=== PATIENT | male | born 1975 | race Caucasian/White ===

== ENCOUNTER → 2024-08-27 10:46 | Outpatient (REF) | payer OTHER, SELFPAY | LOC: RAD 10:46 | PROVIDERS: ATTENDING PHYSICIAN Family Medicine | DX: N50.811 Right testicular pain (principal) | CPT/HCPCS: 76870; 93976 ==

== ENCOUNTER 2024-08-27 13:58 | Emergency (ER) | payer OTHER, SELFPAY ==
[2024-08-27 13:59] VITALS: BP 124/84
[2024-08-27 14:57] LABS: Urine Albumin Negative (Neg - Trace); Urine Bilirubin Negative (Negative); Urine Character Clear (Clear); Urine Color Yellow; Urine Glucose Negative (Negative); Urine Ketone Negative (Negative); Urine Leukocyte Negative (Negative); Urine Nitrite Negative (Negative); Urine Occult Blood 1+ (Negative); Urine Urobilinogen Negative (Neg - 1+); Urine pH 6.5 (5.0-9.0)
[2024-08-27 15:07] LABS: Urine Red Blood Cell 0-2 /HPF (0-2); Urine Squamous Cell 0-2 /LPF (Few); Urine White Cell 0-2 /HPF (0-5)
--- NOTE | 2024-08-27 15:08 | ED.GENMED ---
History of Present Illness
General
Chief Complaint: Male Genito-Urinary Symptoms
Time Seen by Provider: 08/27/24 14:21
History of Present Illness
History of Present Illness:
49-year-old male presents the emergency department for patient of right-sided testicular pain for the past 1 to 2 days. Saw his primary care physician this morning was started on Bactrim, was sent for an outpatient ultrasound and due to the reading
of possible intermittent torsion was sent to the ED. He reports a constant mild to moderate pain with no waxing and waning quality, denies dysuria or hematuria. Denies concern for STI. No trauma to the testicle.
Past History
Past History
ED Past Medical History: None
ED Past Surgical History: Appendectomy
Social History
Tobacco: Non-smoker
Alcohol: Occasional
Drug: None
Living: with family
Employment: Employed
Family History
Family History: Other (non contributary)
Review of Systems
Review of Systems
Allergies reviewed?: Yes
All Other Systems: ROS reviewed and negative except as documented in HPI and ROS
Phy Exam
Physical Exam
Physical Exam:
GEN: Well appearing, NAD, WDWN
HEENT: Oral mucosa moist, no scleral icterus
Cardiac: Regular rate
Lung: No respiratory distress, no tachypnea
: Moderate swelling and erythema to the right hemiscrotum with focal epididymal and testicular tenderness, cremasterics reflex not appreciated bilaterally, no inguinal adenopathy
MSK: No gross deformity or injuries
Skin: Good color, no pallor or jaundice, no rashes
Neuro: AO x3, moves all extremities freely
Psych: Calm, cooperative
Course
Orders/Labs/Results
Orders:
Orders
08/27/24 14:50
Urinalysis Reflex To Culture Urgent
Date Specimen was Collected: 08/27/24
Time Specimen was Collected: 14:46
Urine Microscopic Reflex Cult Urgent
Abnormal Lab Results
08/27/24
14:50
Ur Occult Blood Reflex 1+ A
(Negative)
Vital Signs
Initial and Last Documented VS:
Initial Vital Signs
Temp Pulse Resp BP Pulse Ox
98.0 F 112 20 124/84 98
08/27/24 13:59 08/27/24 13:59 08/27/24 13:59 08/27/24 13:59 08/27/24 13:59
Last Documented Vital Signs
Temp Pulse Resp BP Pulse Ox
98.0 F 112 20 124/84 98
08/27/24 13:59 08/27/24 13:59 08/27/24 15:30 08/27/24 13:59 08/27/24 15:11
MDM/Problems Addressed
MDM/Problems Addressed:
Reviewed clinical presentation and imaging findings with urology on-call who agrees this is more compatible with acute epididymitis as Opposed to torsion. Will continue outpatient treatment plan with antibiotics and NSAIDs
*Pulse Oximetry
SaO2: 98
Oxygen Mode of Delivery: Room air
*Critical Care Note
Total Time (30-74mins, 75-104mins- exclusive of procedures): Not Applicable
ED Attending Note
-
Portions of this chart may have been created with voice recognition software.� Occasional wrong word or��sound alike� substitutions may have occurred due to the inherent limitations of voice recognition software.
Discharge Plan
Departure
Patient Disposition: Home (Routine Discharge)
Date of Disposition: 08/27/24
Time of Disposition: 15:09
Patient with high blood pressure during this ER visit?: No
Discharge Problem:
Epididymitis
Instructions: Epididymitis and Orchitis
Prescriptions:
No Action
ibuprofen 600 MG tablet
600 mg PO Q6H Qty: 30 0RF
dextroamphetamine-amphetamine 15 MG tablet
15 mg PO DAILY
Activity Restrictions/Additional Instructions:
Take 600mg ibuprofen every 6-8 hours
Complete the full course of antibiotics
Interventions
Interventions:
*Risk Screen - Suicide Last Done: 08/27/24 15:32
*General Assessment Last Done: 08/27/24 13:59
*Neglect/Abuse Screening Last Done: 08/27/24 15:32
*ED- Fall Risk Assessment Last Done: 08/27/24 15:32
*ED COVID-19 Vaccine History Last Done: 08/27/24 15:32
*Nursing Disposition Last Done: 08/27/24 15:32
ED-Male Genitourinary Assessment Last Done: 08/27/24 14:52
Discharge Date and Time
Discharge Date/Time: 08/27/24 15:36
Print Language: ESTONIAN
== END 2024-08-27 15:36 | disposition home or self-care (01) ==
LOC: EMR 13:58
PROVIDERS: Physician Assistant; EMERGENCY PHYSICIAN Emergency Medicine; FAMILY PHYSICIAN Family Medicine
DX: N45.1 Epididymitis (principal); Z90.49 Acquired absence of other specified parts of digestive tract
CPT/HCPCS: 99282; 81003; 81015